=== PATIENT | male | born 1970 | race Caucasian/White ===

== ENCOUNTER 2024-10-12 00:27 | Outpatient (CLI) | payer OTHER, SELFPAY ==
--- NOTE | 2024-10-12 06:15 | DI.MAMMO_ITS ---
Exam(s) MAMMO SCREENING EXAM: MAMMO SCREENING CLINICAL HISTORY: screening,z12.39. TECHNIQUE: Bilateral full field digital CC and MLO mammographic images were obtained with 3D tomosyn thesis and utilizing computer aided detection (CAD). COMPARISON: Prior outside mammograms were reviewed. FINDINGS: Fibroglandular tissue pattern is again noted be dense, this somewhat decreasing the sensitivity of th e mammogram for finding hidden underlying lesions. Two findings in the right breast. In the left breast there is a 3 millimeter nodular density located 4 cm above the nipple on the MLO v iew, not previously present. On the CC view it is located 3.5 cm lateral to the nipple. There are no malignant-appearing microcalcification groups is region or elsewhere in either breast. There is no significant architectural distortion nor skin thickening-retraction. IMPRESSION: Dense bilateral fibroglandular tissue. No obvious radiographic evidence of malignancy in the right b reast. 3 millimeter left breast nodule, not evident on prior outside mammograms. Spot compression view and ultrasound recommended BI-RADS Category 0 - Incomplete: Need additional imaging evaluation Breast Density - Category C - The breast are heterogeneously dense, which may obscure small masses. Breast density Category C or D implies that the patient has dense breast tissue. Dense breast tissue can make it harder to find cancer on a mammogram. Dense breast tissue is also associated with an incr eased risk of breast cancer. This information about the result of the mammogram report was provided to the patient to raise their awareness. Use this report when you speak with the patient about their risks for breast cancer, which includes their family history. At that time, you may recommend additional screening tests (Ultrasoun d or MRI) as these tests may add significant information. A negative radiographic report should not delay biopsy if a dominant or clinically suspicious mass is present. Up to ten percent of cancers are not identified on mammography. A negative report may reinforce clinical impression. Adenosis and dense breasts may obscure an underlying neoplasm. False positive reports average 6 to 10%. Patient will receive a letter notifying them of these results.
== END 2024-10-12 00:47 ==
LOC: DI 00:27
PROVIDERS: PCP Nurse Practitioner Family; Visit Provider Nurse Practitioner Family
DX: Z12.31 Encounter for screening mammogram for malignant neoplasm of breast (principal); R92.333 Mammographic heterogeneous density, bilateral breasts
CPT/HCPCS: 77063; 77067

== ENCOUNTER 2024-10-22 02:47 | Outpatient (CLI) | payer OTHER, SELFPAY ==
--- NOTE | 2024-10-22 | DI.US_ITS ---
Exam(s) MG MAMMO SCREEN CALL BACK UNI US BREAST LT LIMITED EXAM: MG MAMMO SCREEN CALL BACK UNI CLINICAL HISTORY: 3 MILLIMETER LT BREAST NODULE, NOT EVIDENT ON PRIOR MAMMOS R92.8 ABNL MAMMO. TECHNIQUE: Craniocaudal and mediolateral oblique spot compression digital Mammography views of both breasts with Tomosynthesis and left breast ultrasound. COMPARISON: MG MAMMO SCREENING BILATERAL DIGITAL from 05/12/2020 MG MAMMO FROYLAN BILAT SCREEN DIG from 10/22/2022 MG MG MAMMO SCREENING from 10/12/2024 US US BREAST LT LIMITED from 10/22/2024 FINDINGS: Mammography/Tomosynthesis: Masses: Persistent tiny circumscribed low-density nodule in the upper outer quadrant. Architectural Distortion: None seen. Microcalcifictions: No suspicious pleomorphic-type are seen. Skin Thickening/Nipple Retraction: None. Left breast US: Echotexture: Normal appearance of the glandular tissue. Shadowing: No suspicious foci. Cyst: 4 millimeter cyst 1 o'clock position 2 cm from the nipple Solid lesions: None seen. Ductal dilation: None. IMPRESSION: 1. No evidence of malignancy is noted. 2. Unless there is more urgent need, follow-up screening mammography is recommended, as per [employer] guidelines. 3. The findings were discussed with the patient on the date of the examination. BI-RADS Category 2 - Benign Findings Breast Density - Category C - The breast are heterogeneously dense, which may obscure small masses. Breast density Category C or D implies that the patient has dense breast tissue. Dense breast tissue can make it harder to find cancer on a mammogram. Dense breast tissue is also associated with an incr eased risk of breast cancer. This information about the result of the mammogram report was provided to the patient to raise their awareness. Use this report when you speak with the patient about their risks for breast cancer, which includes their family history. At that time, you may recommend additional screening tests (Ultrasoun d or MRI) as these tests may add significant information. A negative radiographic report should not delay biopsy if a dominant or clinically suspicious mass is present. Up to ten percent of cancers are not identified on mammography. A negative report may reinforce clinical impression. Adenosis and dense breasts may obscure an underlying neoplasm. False positive reports average 6 to 10%. Patient will receive a letter notifying them of these results.
== END 2024-10-22 03:07 ==
LOC: DI 02:47
PROVIDERS: PCP Nurse Practitioner Family; Visit Provider Nurse Practitioner Family
DX: Z12.31 Encounter for screening mammogram for malignant neoplasm of breast (principal); R92.8 Other abnormal and inconclusive findings on diagnostic imaging of breast
CPT/HCPCS: 76642; 77063; 77067

== ENCOUNTER 2025-03-21 05:23 | Outpatient (CLI) | payer OTHER, SELFPAY ==
[2025-03-21 10:57] LABS: Glucose 93 mg/dL (74-106)
[2025-03-21 11:23] LABS: Anion Gap 9.4 mmol/L (3-11); BUN 10 mg/dL (7-18); CO2 29.6 mmol/L (21.0-32.0); Calcium 9.5 mg/dL (8.5-10.1); Calculated LDL 118 mg/dL (<100); Chloride 99 mmol/L (98-107); Cholesterol 207 mg/dL (<200); Estimated GFR 75.97 (mL/min/1.73m2); Glucose 95 mg/dL (74-106); HDL Cholesterol 63 mg/dL (>or=50); Potassium 3.8 mmol/L (3.5-5.1); Sodium 138 mmol/L (136-145); TSH (W/Ref FT4) 0.97 uIU/mL (0.36-3.74); Triglyceride 133 mg/dL (<150); Vitamin D 25 Total 52 ng/mL (30-100)
== END 2025-03-21 05:24 | disposition home or self-care (01) ==
PROVIDERS: PCP Nurse Practitioner Family; Visit Provider Nurse Practitioner Family
DX: Z00.00 Encounter for general adult medical examination without abnormal findings (principal); R68.82 Decreased libido
CPT/HCPCS: 36415; 80048; 80061; 82306; 82947; 84443

== ENCOUNTER 2025-03-21 05:31 | Outpatient (CLI) | payer OTHER, SELFPAY ==
--- NOTE | 2025-03-21 07:30 | DI.RAD_ITS ---
Exam(s) XR KNEE LT 3V AP,LAT,ALEXA EXAM: XR KNEE LT 3V AP,LAT,ALEXA CLINICAL HISTORY: lt medial knee pain, m25.562, ? oa. TECHNIQUE: 2D digital imaging was performed. Three views. COMPARISON: No exams were available for comparison FINDINGS: BONES: No acute fracture is present. No bony destructive lesion is seen. JOINTS: The knee is normally aligned. The joint spaces are maintained. No significant degenerative changes. No joint effusion is seen. SOFT TISSUE: Normal. IMPRESSION: Normal radiographs of the left knee. DATA REPOSITORY: RADIATION DOSE DELIVERED:
== END 2025-03-21 05:51 ==
LOC: DI 05:31
PROVIDERS: PCP Nurse Practitioner Family; Visit Provider Nurse Practitioner Family
DX: M25.562 Pain in left knee (principal)
CPT/HCPCS: 73562

== ENCOUNTER 2025-04-23 12:04 | Outpatient (CLI) | payer OTHER, SELFPAY ==
--- NOTE | 2025-04-23 09:45 | DI.RAD_ITS ---
Exam(s) XR HIP RT COMPLETE AP PELVIS EXAM: XR HIP RT COMPLETE AP PELVIS CLINICAL HISTORY: right hip pain. TECHNIQUE: 2D digital imaging was performed. Three views. COMPARISON: No exams were available for comparison FINDINGS: BONES: No acute fracture is present. No bony destructive lesion is seen. JOINTS: No dislocation present. Hip joint spaces are maintained. Minimal bilateral acetabular spurring. SI joints and pubic symphysis are unremarkable. SOFT TISSUE: Normal. IMPRESSION: Minimal degenerative changes. DATA REPOSITORY: RADIATION DOSE DELIVERED:
== END 2025-04-23 12:05 | disposition home or self-care (01) ==
LOC: DIORS 12:04
PROVIDERS: PCP Nurse Practitioner Family; Visit Provider Physician Assistant
DX: M25.551 Pain in right hip (principal); M16.11 Unilateral primary osteoarthritis, right hip
CPT/HCPCS: 73502

== ENCOUNTER → 2025-05-15 00:09 | Outpatient (CLI) | payer OTHER, SELFPAY ==
--- NOTE | 2025-05-15 06:45 | DI.MRI_ITS ---
Exam(s) MR LOWER JOINT LT WO EXAM: MR LOWER JOINT LT WO CLINICAL HISTORY: L KNEE PAIN,TEAR MEDIAL MENISCUS LT KNEE,S83.242A. TECHNIQUE: Multiplanar multisequence MRI was performed. COMPARISON: CR XR KNEE LT 3V AP,LAT,ALEXA from 03/21/2025 FINDINGS: BONES: There is no fracture or contusion pattern. JOINTS: A small joint effusion is present. Articular cartilage: Patellofemoral joint: Small focal defect in the lateral patellar facet. No significant cartilage thinning. Medial femoral tibial joint: Articular cartilage is unremarkable. Lateral femoral tibial joint: Articular cartilage is unremarkable. LIGAMENTS/TENDONS: Anterior Cruciate: Unremarkable. Posterior Cruciate: Unremarkable. Medial Collateral:Unremarkable. Lateral Collateral ligament complex: Unremarkable. Extensor mechanism: Unremarkable. Medial retinaculum: Unremarkable. Lateral retinaculum: Unremarkable. Popliteus: Unremarkable. MENISCI: The medial meniscus is unremarkable. The lateral meniscus is unremarkable. MUSCLES: Unremarkable. SOFT TISSUES: Unremarkable. IMPRESSION: Small joint effusion. Small focal defect in the lateral patellar facet cartilage which does not extend down to bone. No evidence of ligament or meniscal tear. DATA REPOSITORY:
== END ==
LOC: DI 00:10
PROVIDERS: PCP Nurse Practitioner Family; Visit Provider Student in an Organized Health Care Education/Training Program
DX: S83.242A Other tear of medial meniscus, current injury, left knee, initial encounter (principal); X58.XXXA Exposure to other specified factors, initial encounter
CPT/HCPCS: 73721

== ENCOUNTER 2025-05-27 02:01 | Outpatient (CLI) | payer OTHER, SELFPAY ==
[2025-05-27] MEDS: Levalbuterol HFA 15 GM INH 4 PUFF IH (11:10)
[2025-05-27] MEDS: Inhaler, Assist Device 1 EACH MC (11:10)
--- NOTE | 2025-06-03 13:29 | W.PFT ---
Date of service: 05/27/25 Time of Service: 10:02 Pulmonary Function Test Result Indications: Asthma Impression 1. Good patient effort was noted. ATS standards for reproducibility were met. 2. Spirometry showed severe obstructive lung disease with an FEV1 of 47% (1.06 L) 3. Following the administration of a bronchodilator there was a significant response. FEV1 improved to 74% (1.65) L post-bronchodilator 4. TLC and RV were elevated, consistent with air trapping 5. DLCO was normal at 96% predicted
== END 2025-05-27 02:02 | disposition home or self-care (01) ==
LOC: RT 02:01
PROVIDERS: PCP Nurse Practitioner Family; Visit Provider Family Medicine
DX: J45.990 Exercise induced bronchospasm (principal); J44.9 Chronic obstructive pulmonary disease, unspecified
CPT/HCPCS: 94060; 94726; 94729